=== PATIENT | male | born 1990 | race Caucasian/White ===

== ENCOUNTER 2018-04-04 13:45 | Inpatient (IN) | payer MEDICAID ==
[2018-04-04] MEDS ORDERED: CEFEPIME HCL 2 GM in NS 100 ML IV ONE (14:51)
[2018-04-04] MEDS ORDERED: NS 1,000 ML IV ONE ×2 (14:52)
[2018-04-04] MEDS ORDERED: VANCOMYCIN HCL/NORMAL SALINE 250 ML IV ONE (14:52)
--- NOTE | 2018-04-04 15:08 | EDPHY ---
H & P Time Seen by Provider: 04/04/18 14:42 HPI/ROS: CHIEF COMPLAINT: Right foot redness and pain HISTORY OF PRESENT ILLNESS: Patient wears sneakers usually and had a callus on his left foot that opened up 4 days ago. 2 days ago started becoming red and then yesterday and today draining and increasing swelling and became more painful. Presents with moderate pain in the right foot essentially around the great toe into the main part of the foot, does not radiate, worse with palpation or any pressure. Is associated with draining pus, no fever or chills. Symptoms moderate to severe. REVIEW OF SYSTEMS: Eye: no change in vision ENT: Congestion and a little bit of a cough over the past 2 days, stable Cardiac: no chest pain or syncope Pulmonary: Not short of breath Abdomen: no vomiting, diarrhea, abdominal pain Musculoskeletal: no back pain Skin: HPI Neuro: no headache Constitutional: no fever : no urinary symptoms A comprehensive 10 point review of systems is otherwise negative aside from elements mentioned in the history of present illness. PAST MEDICAL HISTORY: PTSD and anxiety Social history: Tobacco smoker no IV drugs General Appearance: Alert and conversant, cooperative. Eyes: No scleral icterus. ENT, Mouth: Normal mucous membranes. Respiratory: Normal respiratory effort, breath sounds equal, lungs are clear to auscultation. Cardiovascular: Regular rate and rhythm. Gastrointestinal: Abdomen is soft and non tender. Neurological: Alert, face symmetric, normal motor and sensory in extremities. Skin: Redness and swelling on the great toe extending proximally into the forefoot and laterally to the 2nd toe. No crepitus. There is an open wound on the lateral side of the great toe between the great toe and 2nd toe which is draining pus. There is an ecchymotic area just on the ball of the foot 1.5 cm diameter. Musculoskeletal: Swelling and tenderness in the right great toe extending into the midfoot. Psychiatric: Not agitated. Emergency Department course/MDM: 1504: discussed with Shae will consult for surgery. 1507: Discussed with Dr. Padgett. IV cefepime 2g to cover for Pseudomonas given his plantar wound and infection, vancomycin 1g for gram-positive. 1538: Does not have SIRS criteria in the ED, x-ray shows soft tissue swelling but no gas. Wound culture performed. Patient declined IV pain medication. Smoking Status: Current every day smoker Constitutional: Initial Vital Signs Temperature (C) 37.4 C 04/04/18 14:08 Heart Rate 102 H 04/04/18 14:08 Respiratory Rate 18 04/04/18 14:08 Blood Pressure 146/82 H 04/04/18 14:08 O2 Sat (%) 97 04/04/18 14:08 O2 Delivery Mode Room Air Allergies/Adverse Reactions: No Known Allergies Allergy (Verified 04/04/18 15:36) Home Medications: Medication Instructions Recorded QUEtiapine FUMARATE [Seroquel 100 100 mg PO DAILY 04/04/18 mg (*)] hydrOXYzine HCL [Vistaril 25MG] 25 mg PO TID 04/04/18 Medical Decision Making - Diagnostics Imaging Results: Imaging Impressions Foot X-Ray 04/04/18 14:52 Impression: [place] soft tissue swelling. No evidence for underlying osteomyelitis. Imaging: I viewed and interpreted images myself Differential Diagnosis: Differential considered including but not limited to cellulitis, fasciitis, deep space abscess, osteomyelitis. - Data Points Laboratory Results: Laboratory Results 04/04/18 14:58 04/04/18 14:58 04/04/18 04/04/18 04/04/18 14:58 14:58 14:58 WBC 11.00 10^3/uL H 10^3/uL (3.80-9.50) RBC 5.41 10^6/uL 10^6/uL (4.40-6.38) Hgb 15.3 g/dL g/dL (13.7-17.5) Hct 46.2 % % (40.0-51.0) MCV 85.4 fL fL (81.5-99.8) MCH 28.3 pg pg (27.9-34.1) MCHC 33.1 g/dL g/dL (32.4-36.7) RDW 13.1 % % (11.5-15.2) Plt Count 317 10^3/uL 10^3/uL (150-400) MPV 10.1 fL fL (8.7-11.7) Neut % (Auto) 75.7 % H % (39.3-74.2) Lymph % (Auto) 15.5 % % (15.0-45.0) [place] % (Auto) 5.5 % % (4.5-13.0) Eos % (Auto) 2.3 % % (0.6-7.6) Baso % (Auto) 0.5 % % (0.3-1.7) Nucleat RBC Rel Count 0.0 % % (0.0-0.2) Absolute Neuts (auto) 8.35 10^3/uL H 10^3/uL (1.70-6.50) Absolute Lymphs (auto) 1.70 10^3/uL 10^3/uL (1.00-3.00) Absolute Monos (auto) 0.60 10^3/uL 10^3/uL (0.30-0.80) Absolute Eos (auto) 0.25 10^3/uL 10^3/uL (0.03-0.40) Absolute Basos (auto) 0.05 10^3/uL 10^3/uL (0.02-0.10) Absolute Nucleated RBC 0.00 10^3/uL 10^3/uL (0-0.01) Immature Gran % 0.5 % % (0.0-1.1) Immature Gran # 0.05 10^3/uL 10^3/uL (0.00-0.10) PT 13.1 SEC SEC (12.0-15.0) INR 0.97 (0.83-1.16) APTT 29.0 SEC SEC (23.0-38.0) VBG Lactic Acid Sodium 143 mEq/L mEq/L (135-145) Potassium 4.0 mEq/L mEq/L (3.3-5.0) Chloride 100 mEq/L mEq/L (97-110) Carbon Dioxide 31 mEq/l mEq/l (22-31) Anion Gap 12 mEq/L mEq/L (6-14) BUN 14 mg/dL mg/dL (7-23) Creatinine 0.7 mg/dL mg/dL (0.7-1.3) Estimated GFR > 60 Glucose 78 mg/dL mg/dL (70-100) Calcium 10.1 mg/dL mg/dL (8.5-10.4) Total Bilirubin 1.3 mg/dL mg/dL (0.1-1.4) 04/04/18 14:58 WBC RBC Hgb Hct MCV MCH MCHC RDW Plt Count MPV Neut % (Auto) Lymph % (Auto) [place] % (Auto) Eos % (Auto) Baso % (Auto) Nucleat RBC Rel Count Absolute Neuts (auto) Absolute Lymphs (auto) Absolute Monos (auto) Absolute Eos (auto) Absolute Basos (auto) Absolute Nucleated RBC Immature Gran % Immature Gran # PT INR APTT VBG Lactic Acid 0.8 mmol/L mmol/L (0.7-2.1) Sodium Potassium Chloride Carbon Dioxide Anion Gap BUN Creatinine Estimated GFR Glucose Calcium Total Bilirubin Medications Given: Discontinued Medications Sodium Chloride (Ns) 1,000 mls @ 0 mls/hr IV EDNOW ONE; Wide Open PRN Reason: Protocol Stop: 04/04/18 14:53 Last Admin: 04/04/18 15:27 Dose: 1,000 mls Sodium Chloride (Ns) 1,000 mls @ 0 mls/hr IV EDNOW ONE; Wide Open PRN Reason: Protocol Stop: 04/04/18 14:53 Last Admin: 04/04/18 16:06 Dose: 1,000 mls Vancomycin/Sodium Chloride (Vancomycin 1 Gm (Premix)) 250 mls @ 250 mls/hr IV EDNOW ONE PRN Reason: Protocol Stop: 04/04/18 15:51 Last Admin: 04/04/18 15:28 Dose: 250 mls Departure - Departure Disposition: [facility] Clinical Impression: Right foot infection Condition: Good
[2018-04-04] MEDS ORDERED: HYDROmorphONE/DILAUDID 2 MG/ML INJ IVP PRN (15:09)
[2018-04-04] MEDS ORDERED: ONDANSETRON 4 MG/2 ML VIAL IVP PRN (15:09)
[2018-04-04] MEDS ORDERED: ONDANSETRON DISINTEGRATING 4 MG TAB PO PRN (15:09)
[2018-04-04] MEDS ORDERED: HYDROmorphONE/DILAUDID 2 MG TAB PO PRN (15:09)
[2018-04-04] MEDS ORDERED: ACETAMINOPHEN 325 MG TAB PO PRN (15:09)
[2018-04-04 15:15] LABS: PLATELET COUNT 317 10^3/uL (150-400)
[2018-04-04 15:40] LABS: INR 0.97 (0.83-1.16); PROTIME(PATIENT) 13.1 SEC (12.0-15.0)
--- NOTE | 2018-04-04 15:48 | PDGENHP ---
History and Physical - Chief Complaint Acute foot pain - History of Present Illness Primary care provider: None Primary mental health provider: [facility] HPI: 27-year-old male presenting with acute foot pain characterized as a sharp pain located in his right 1st digit with associated swelling, subjective fevers , pustulant drainage. Patient reports that the onset of the swelling was approximately 3 days ago and duration has been persistent and worsening thereafter. At 1st he was not sure if he had frostbite and he aggressively massaged the area, noting what appeared to be a blood blister on the plantar surface of the right foot located right at the base between the 1st and 2nd digit. He began developing pain which was exacerbated by ambulating in placing weight on the affected area, and the pain would be alleviated by staying off of his foot. The pain then evolved into discomfort with any palpation. On the day of presentation, the area that he believed to be a blood blister opened up and began draining pustule and bloody drainage. He has not been taking any medications for the pain and the patient has been living in his car recently. History Information - Allergies/Home Medication List Allergies/Adverse Reactions: No Known Allergies Allergy (Verified 04/04/18 15:36) Home Medications: QUEtiapine FUMARATE [Seroquel 100 mg (*)] 100 mg PO DAILY 04/04/18 [Last Taken 03/05/18] hydrOXYzine HCL [Vistaril 25MG] 25 mg PO TID 04/04/18 [Last Taken 03/05/18] I have personally reviewed and updated: family history, medical history, social history, surgical history - Past Medical History Additional medical history: Schizoaffective disorder, PTSD, seen at [facility] - Surgical History Reports: no pertinent surgical hx - Family History Additional family history: Several second-degree relatives with diabetes, patient is fairly vague about the details - Social History Smoking Status: Current every day smoker Alcohol Use: None Drug Use: Marijuana Additional social history: Independent in his ADLs comma the patient recently relocated to [place] from [place] approximately 1 month ago, he had been residing in the [place] [facility] and is currently living in his car Review of Systems Review of Systems: ROS: 10pt was reviewed & negative except for what was stated in HPI & below Constitutional: Reports: fever Muscolosketal: Reports: other (Pain in the right great toe with ambulation) Skin: Reports: other (Swelling, tenderness right great toe) Physical Exam Physical Exam: Temp Pulse Resp BP Pulse Ox 37.4 C 102 H 18 146/82 H 97 04/04/18 14:08 04/04/18 14:08 04/04/18 14:08 04/04/18 14:08 04/04/18 14:08 Constitutional: no apparent distress, appears nourished, not in pain, No uncomfortable Eyes: PERRL, anicteric sclera, EOMI Ears, Nose, Mouth, Throat: moist mucous membranes, hearing normal, ears appear normal, no oral mucosal ulcers Cardiovascular: tachycardia, edema (Right foot distal to the mid foot), No systolic murmur, No irregularly irregular Respiratory: no respiratory distress, no rales or rhonchi, clear to auscultation Gastrointestinal: normoactive bowel sounds, soft, non-tender abdomen, no palpable masses Skin: other (Blanchable erythema right great toe with tenderness, bloody, scabbed, necrotic tissue at the base of the right great toe, soft tissue edema which is tender) Musculoskeletal: other (Impaired plantar flexion right great toe, painful dorsiflexion right great toe, full range of motion right ankle without any pain) Neurologic: AAOx3, sensation intact bilaterally Psychiatric: not anxious, not encephalopathic, flat affect, No agitated Lymph, Heme, Immunologic: lymphangitic streaking (Dorsum of the right foot) Lab Data & Imaging Review 04/04/18 14:58 04/04/18 14:58 WBC 11.00 10^3/uL (3.80-9.50) H 04/04/18 14:58 RBC 5.41 10^6/uL (4.40-6.38) 04/04/18 14:58 Hgb 15.3 g/dL (13.7-17.5) 04/04/18 14:58 Hct 46.2 % (40.0-51.0) 04/04/18 14:58 MCV 85.4 fL (81.5-99.8) 04/04/18 14:58 MCH 28.3 pg (27.9-34.1) 04/04/18 14:58 MCHC 33.1 g/dL (32.4-36.7) 04/04/18 14:58 RDW 13.1 % (11.5-15.2) 04/04/18 14:58 Plt Count 317 10^3/uL (150-400) 04/04/18 14:58 MPV 10.1 fL (8.7-11.7) 04/04/18 14:58 Neut % (Auto) 75.7 % (39.3-74.2) H 04/04/18 14:58 Lymph % (Auto) 15.5 % (15.0-45.0) 04/04/18 14:58 [place] % (Auto) 5.5 % (4.5-13.0) 04/04/18 14:58 Eos % (Auto) 2.3 % (0.6-7.6) 04/04/18 14:58 Baso % (Auto) 0.5 % (0.3-1.7) 04/04/18 14:58 Nucleat RBC Rel Count 0.0 % (0.0-0.2) 04/04/18 14:58 Absolute Neuts (auto) 8.35 10^3/uL (1.70-6.50) H 04/04/18 14:58 Absolute Lymphs (auto) 1.70 10^3/uL (1.00-3.00) 04/04/18 14:58 Absolute Monos (auto) 0.60 10^3/uL (0.30-0.80) 04/04/18 14:58 Absolute Eos (auto) 0.25 10^3/uL (0.03-0.40) 04/04/18 14:58 Absolute Basos (auto) 0.05 10^3/uL (0.02-0.10) 04/04/18 14:58 Absolute Nucleated RBC 0.00 10^3/uL (0-0.01) 04/04/18 14:58 Immature Gran % 0.5 % (0.0-1.1) 04/04/18 14:58 Immature Gran # 0.05 10^3/uL (0.00-0.10) 04/04/18 14:58 PT 13.1 SEC (12.0-15.0) 04/04/18 14:58 INR 0.97 (0.83-1.16) 04/04/18 14:58 APTT 29.0 SEC (23.0-38.0) 04/04/18 14:58 VBG Lactic Acid 0.8 mmol/L (0.7-2.1) 04/04/18 14:58 Sodium 143 mEq/L (135-145) 04/04/18 14:58 Potassium 4.0 mEq/L (3.3-5.0) 04/04/18 14:58 Chloride 100 mEq/L (97-110) 04/04/18 14:58 Carbon Dioxide 31 mEq/l (22-31) 04/04/18 14:58 Anion Gap 12 mEq/L (6-14) 04/04/18 14:58 BUN 14 mg/dL (7-23) 04/04/18 14:58 Creatinine 0.7 mg/dL (0.7-1.3) 04/04/18 14:58 Estimated GFR > 60 04/04/18 14:58 Glucose 78 mg/dL (70-100) 04/04/18 14:58 Calcium 10.1 mg/dL (8.5-10.4) 04/04/18 14:58 Total Bilirubin 1.3 mg/dL (0.1-1.4) 04/04/18 14:58 Visualized and Interpreted imaging results: Yes Interpretation: X-ray of the right foot demonstrates soft tissue swelling Assessment & Plan Assessment: 27-year-old male presents with severe soft tissue infection of the right foot Plan: 1. Severe soft tissue infection. Acute, new problem this provider, further workup indicated. Likely combination of deep tissue cellulitis as well as abscess with apparent drainage on the day of presentation, unclear precipitant -discussed with Dr. Kaufman and Dr. Graves, our consensus is that this does not appear to demonstrate tenosynovitis but there is high-level suspicion that deep soft tissues are involved and the patient requires emergent exploration and drainage by General surgery -patient to go to OR this afternoon, keep NPO -blood culture sent, wound cultures will be obtained in OR -received IV fluids in the emergency department, continue -initiated on IV vancomycin and IV cefepime, continue until culture result available -get Infectious Disease consultation in a.m. -check hemoglobin A1c -get wound care consultation for ongoing wound management as it is likely that this will require complex wound management as an outpatient following this hospitalization 2. Schizoaffective disorder. Pharmacy to reconcile medications, will notify [facility] of the patient's presentation, patient is currently cooperative 3. Tobacco use disorder. Nicotine patch available Diet. NPO with IV fluids Prophylaxis. High risk patient, hold on pharmacologic until after surgery, SCDs in the interim Code. Full Disposition. Anticipated discharge uncertain this time, anticipated length stay is greater than 48 hr for reasonable medical necessity including severe soft tissue infection requiring IV antibiotics, emergent OR exploration, will require close reassessment and Infectious Disease consultation. I have discussed patient's presentation with Dr. John Meyer, he and I both agree the patient meets all inpatient criteria as outlined above and the [facility].
[2018-04-04] MEDS ORDERED: KETOROLAC 15 MG/1 ML SDV IVP PRN (17:24)
--- NOTE | 2018-04-04 18:05 | GCON ---
DATE OF CONSULTATION: 04/04/2018 This is a 27-year-old gentleman who is currently homeless, who has had 3 days of worsening foot pain and swelling. This morning he had drainage from his foot. He thought it was just frostbite and that he could work it out with massage. He has had subjective fevers. No chills. He has not had anythi ng like this in the past. The patient presented to the emergency room for evaluation. He is admitte d to Medicine at this point. Foot x-ray has been performed, which does not show any osteomyelitis. White blood cell count is 11.0 with a left shift. PAST MEDICAL HISTORY: Significant for schizoaffective disorder. MEDICATIONS: At home are Seroquel and Vistaril. ALLERGIES: He has no known drug allergies. FAMILY HISTORY: Noncontributory. Family is significant for diabetes. SOCIAL HISTORY: The patient is a current smoker. He does use marijuana. He denies alcohol use. PREVIOUS SURGERY: Only previous surgery was wisdom teeth extraction. REVIEW OF SYSTEMS: Significant for fever, pain in his great toe with ambulation and swelling. All o thers are reviewed and are negative. EXAM: VITALS: He has a temperature of 37.4, heart rate of 102, blood pressure of 146/82, saturating 97% on room air, with a respiratory rate of 18. GENERAL: He is not in any distress. He appears we ll-nourished and comfortable. HEENT: His sclerae are anicteric. Extraocular motions intact. His mu cous members are moist. He has fairly good dentition. HEART: Regular rate and rhythm. LUNGS: Clear to auscultation bilaterally. ABDOMEN: Soft, nontender, nondistended. He has no adenopathy in either groin. EXTREMITIES: Right lower extremity has a swollen forefoot and right great toe with p urulent drainage from the inside aspect of the great toe with tenderness to dorsiflexion. He does no t have tendon tenderness with palpation of the tendon sheath. Joint may be involved based on evaluat ion with approximately the infection going to the mid forefoot. He does have lymphangitic streaking from the foot up to the ankle. He has intact dorsalis pedis and posterior tibial pulses. Left foot has a callus on the base, but otherwise no signs of infection. I reviewed his x-rays. LABORATORY STUDIES: He has a white blood cell count of 11, hemoglobin of 15, hematocrit of 46, plate let count of 317. Sodium 143, potassium 4.0, chloride 100, bicarb 31, BUN is 14, and creatinine is 0 .7, with a blood sugar of 76. X-ray shows soft tissue swelling but no osteomyelitis. IMPRESSION: Soft tissue infection of his foot. Will need further treatment with an incision and anita inage with washout. He has been booked for the OR, but the patient is ambivalent at this point. The risks, benefits, and alternatives to surgery have been clearly outlined to the patient and recommend aggressive treatment at this point. We will continue vancomycin and cefepime for his current infect ion. Possible Infectious Disease consultation in the morning. He does have schizoaffective disorder , and he will need to have his medications for that. Continue to recommend smoking cessation and ant icipate greater than 48 hours in the hospital at this time. The patient has been apprised of his con dition and the need for urgent surgery. He will inform us of his decision to proceed with surgery. /[id number]/MODL
[2018-04-04] MEDS: IBUPROFEN 600 MG TAB PO PRN (18:38)
[2018-04-04] MEDS: NICOTINE POLACRILEX 2 MG GUM B PRN (18:38)
[2018-04-04] MEDS: hydrOXYzine HCL 25 MG TAB PO SCH (22:04)
[2018-04-04] MEDS: PIPERACILLIN/TAZO 4.5 GM/DEX 100 ML IV SCH (22:04)
[2018-04-05] MEDS: NS 1,000 ML IV SCH ×2 (01:07→09:25)
[2018-04-05] MEDS: IBUPROFEN 600 MG TAB PO PRN ×3 (01:09→19:13)
[2018-04-05] MEDS ORDERED: VANCOMYCIN 1.5 GM in D5W 250 ML IV SCH (04:00)
[2018-04-05] MEDS: PIPERACILLIN/TAZO 4.5 GM/DEX 100 ML IV SCH ×2 (04:56→09:17)
[2018-04-05 06:11] LABS: PLATELET COUNT 242 10^3/uL (150-400)
--- NOTE | 2018-04-05 08:20 | PDMN ---
Medical Necessity Medical necessity: Pt meets IP criteria per & ERIKA PG-WS (Wound & Skin Management); est los >2 mn for eval/tx of severe soft tissue infection; admit for further workup/monitoring, Surgery consult w/emergent surgical intervention , IVFs, IV abx, ID/Wound Care consults & therapies; per H&P & order 04/04/18
--- NOTE | 2018-04-05 08:47 | HOSPPROG ---
Hospitalist Progress Note Assessment/Plan: Soft tissue infection right foot - suspect abscess, no e/o sepsis. BCx's pending, wound Cx with MSSA -MRI foot with and without contrast- no e/o osteo -de-escalate atbx to cefazolin -discussed with surg, to OR this afternoon for I&D Schizoaffective disorder - stable, cont home seroquel Full code DVT PPLX - low risk, defer pharm with OR plans today, SCD's ordered Dispo - cont inpt Subjective: Pt feels ok, less pain in foot, still some drainage overnight. No fevers/chills. NPO this am. Objective: Vital Signs Temp Pulse Resp BP Pulse Ox 36.4 C 72 16 115/84 H 95 04/05/18 08:00 04/05/18 08:00 04/05/18 08:00 04/05/18 08:00 04/05/18 08:00 Laboratory Results 04/05/18 04:36 04/05/18 04:36 04/04/18 04/05/18 04/06/18 05:59 05:59 05:59 Intake Total 1074 Output Total 350 500 Balance 724 -500 PT 13.1 SEC (12.0-15.0) 04/04/18 14:58 INR 0.97 (0.83-1.16) 04/04/18 14:58 - Physical Exam Constitutional: no apparent distress Eyes: PERRL Ears, Nose, Mouth, Throat: moist mucous membranes Cardiovascular: regular rate and rhythym Respiratory: no respiratory distress, clear to auscultation Gastrointestinal: normoactive bowel sounds, soft, non-tender abdomen Skin: warm Musculoskeletal: full muscle strength, other (Right foot with erythema and probable underlying abscess surrounding 1st MTP with bloody drainage) Neurologic: AAOx3 Psychiatric: interacting appropriately ICD10 Worksheet Patient Problems: Problems Problem Status Onset Right foot infection Acute
[2018-04-05] MEDS: NICOTINE POLACRILEX 2 MG GUM B PRN ×4 (09:17→19:15)
[2018-04-05] MEDS: QUEtiapine FUMARATE 100 MG TAB PO SCH ×3 (09:17→21:20)
[2018-04-05] MEDS: hydrOXYzine HCL 25 MG TAB PO SCH ×3 (09:17→21:20)
[2018-04-05] MEDS ORDERED: GADOBUTROL 10 ML VIAL IVP ONE (11:43)
--- NOTE | 2018-04-05 14:20 | SOAPPROG ---
SOAP Progress Note Assessment/Plan: Assessment: 27 yo with abscess right great toe plantar surface. Imaging without osteomylitis. Will proceed to OR for incision and drainage. Risks and benefits discussed S: Feeling about the same. Using Ibuprofen O: Toe and foot on right are edematous and erythematous CTAB RRR Plan: 04/05/18 14:19 Objective: Vital Signs Temp Pulse Resp BP Pulse Ox 36.6 C 70 12 129/84 H 98 04/05/18 12:00 04/05/18 12:00 04/05/18 12:00 04/05/18 12:00 04/05/18 12:00 Laboratory Results 04/05/18 04:36 04/05/18 04:36 04/04/18 04/05/18 04/06/18 05:59 05:59 05:59 Intake Total 1074 Output Total 350 800 Balance 724 -800 PT 13.1 SEC (12.0-15.0) 04/04/18 14:58 INR 0.97 (0.83-1.16) 04/04/18 14:58 ICD10 Worksheet Patient Problems: Problems Problem Status Onset Right foot infection Acute
[2018-04-05] MEDS ORDERED: ceFAZolin 2 GM/DEXTROSE 100 ML IV SCH (15:00)
[2018-04-05] MEDS ORDERED: BUPIVACAINE 0.5% 30 ML SDV ONE (15:29)
[2018-04-05] MEDS ORDERED: MIDAZOLAM 2 MG/2 ML VIAL ONE (15:42)
[2018-04-05] MEDS ORDERED: fentaNYL 100 MCG/2 ML INJ ONE (15:45)
[2018-04-05] MEDS ORDERED: PROPOFOL/EMULSION 500 MG/50 ML BOTTLE IV ONE (15:46)
--- NOTE | 2018-04-05 16:00 | ASMTLACE ---
NEFTALY Acuity / Level of Answers: Yes Care: Did the patient have an inpatient admission? # of Emergency department Answers: 1-2 visits in the last 6 months Social determinants Answers: Homelessness (street, senior living) History of trauma (PTSD, child abuse, domestic violence, etc.) Mental health diagnosis (anxiety, depression, pers onality disorders, etc.) Score: 13 Date Signed: 04/05/2018 04:00 PM Electronically Signed By:aRe Tejada RN
--- NOTE | 2018-04-05 16:05 | ASMTCMCOM ---
CM Note CM Note Notes: Pt recently moved from [place], he has been staying at the [facility] and lives out of his car. He does have schizoaffective disorder and is in the [facility] system. He presents to the ER with an infected toe, he went for surgery today, dc needs uncertain, CM w/f. DC Plan: TBD Date Signed: 04/05/2018 04:04 PM Electronically Signed By:Rae Tejada RN
--- NOTE | 2018-04-05 16:13 | PDANEPAE ---
ANE Past Medical History - Pulmonary History Hx Oxygen in Use at Home: No Hx Sleep Apnea: No Sleep Apnea Screening Result - Last Documented: Negative - Endocrine History Hx Diabetes: No ANE Review of Systems Review of Systems: ANE Patient History - Allergies Allergies/Adverse Reactions: Sulfa (Sulfonamide Antibiotics) Allergy (Intermediate, Verified 04/05/18 14:56) Rash - Home Medications Home Medications: QUEtiapine FUMARATE [Seroquel 100 mg (*)] 100 mg PO DAILY 04/04/18 [Last Taken 03/05/18] hydrOXYzine HCL [Vistaril 25MG] 25 mg PO TID 04/04/18 [Last Taken 03/05/18] - NPO status NPO Since - Liquids (Date): 04/05/18 NPO Since - Liquids (Time): 00:00 NPO Since - Solids (Date): 04/05/18 NPO Since - Solids (Time): 00:00 - Smoking Hx Smoking Status: Current every day smoker - Alcohol Use Alcohol Use: None ANE Labs/Vital Signs - Labs Result Diagrams: 04/05/18 04:36 04/05/18 04:36 - Vital Signs Blood Pressure: 129/84 Heart Rate: 70 Respiratory Rate: 12 O2 Sat (%): 98 Height: 187.96 cm Weight: 90.718 kg ANE Physical Exam - Airway Neck exam: FROM Mallampati Score: Class 1 Mouth exam: normal dental/mouth exam - Pulmonary Pulmonary: no respiratory distress, no rales or rhonchi - Cardiovascular Cardiovascular: regular rate and rhythym, no murmur, rub, or gallop - ASA Status ASA Status: II, E ANE Anesthesia Plan Anesthesia Plan: GA w LMA (ankle block for POPC)
[2018-04-05] MEDS ORDERED: KETOROLAC 30 MG/1 ML SDV ONE (16:21)
[2018-04-05] MEDS ORDERED: ONDANSETRON 4 MG/2 ML VIAL ONE (16:21)
[2018-04-05] MEDS ORDERED: ROPIVACAINE HCL 150 MG/30 ML INJ ONE (16:21)
[2018-04-05] MEDS: NICOTINE 21 MG/24 HR PATCH TD SCH (16:22)
[2018-04-05] MEDS ORDERED: ONDANSETRON 4 MG/2 ML VIAL IVP PRN (16:23)
[2018-04-05] MEDS ORDERED: LR 500 ML IV PRN (16:23)
[2018-04-05] MEDS ORDERED: NALOXONE HCL 0.4 MG/ML INJ IVP PRN (16:23)
[2018-04-05] MEDS ORDERED: fentaNYL 100 MCG/2 ML INJ IVP PRN (16:23)
--- NOTE | 2018-04-05 16:37 | POSTOPPROG ---
Post Op Note Date of Operation: 04/05/18 Surgeon: Erum Lamb Anesthesiologist: murali Anesthesia: GET(General Endotracheal) Pre-op Diagnosis: great toe abscess Post-op Diagnosis: same Indication: 27 yo with abscess great toe. Procedure: Incision and drainage great toe abscess Findings: 1x4x1.5cm. purulent fluid. No bone exposed Inf/Abcess present in the surg proc area at time of surgery?: Yes Depth: Deep Incisional (Fascial) EBL: Minimal Specimen(s): none
--- NOTE | 2018-04-05 16:37 | POSTANESTH ---
Post Anesthetic Evaluation Cardiovascular Status: Normal, Stable, Similar to Pre-Op Cond Respiratory Status: Normal, Stable, Similar to Pre-op Cond. Level of Consciousness/Mental Status: Moderately Sleepy Pain Control: Adequate, Prn Tx Ordered Nausea/Vomiting Control: Adequate, Prn Tx Ordered Complications Possibly Related to Anesthesia: None Noted
--- NOTE | 2018-04-05 16:59 | GOP ---
DATE OF OPERATION: 04/05/2018 SURGEON: Erum Lamb MD ANESTHESIA: General and ankle block. ANESTHESIOLOGIST: Katlyn Nelson MD. PREOPERATIVE DIAGNOSIS: Right great toe abscess. POSTOPERATIVE DIAGNOSIS: Right great toe abscess. PROCEDURE PERFORMED: Incision and drainage right great toe abscess. FINDINGS: Wound measured 1 x 4 x 1.5 cm abscess to the level of tendon. No bone exposed. SPECIMENS: None. ESTIMATED BLOOD LOSS: 5 cc. INDICATIONS: The patient is a 27-year-old who developed a blister on the bottom of his foot. He is living in his car and developed increased erythema and pain. MRI was performed which showed abscess but no osteomyelitis. He declined going to the operating room yesterday and consented today. DESCRIPTION OF PROCEDURE: Patient was brought into the operating room, placed supine on the table. General anesthesia was administered. An ankle block was performed. His foot was prepped and draped in the usual sterile fashion. I made an incision on the medial aspect of the great toe and extended this posteriorly and evacuated all of the necrotic tissue. The wound measures 1 x 4 x 1.5 cm. The w ound was irrigated. Hemostasis achieved. The wound was packed with Hydrofera Blue, followed by gauz e, Kerlix, and Coban. He was awakened in the operating room, extubated, transferred to PACU in stabl e condition. He tolerated the procedure well. /[id number]/MODL
[2018-04-05] MEDS: ceFAZolin 2 GM/DEXTROSE 100 ML IV SCH (18:24)
[2018-04-06] MEDS: ceFAZolin 2 GM/DEXTROSE 100 ML IV SCH ×3 (02:17→17:12)
[2018-04-06] MEDS: NS 1,000 ML IV SCH (03:22)
[2018-04-06] MEDS: IBUPROFEN 600 MG TAB PO PRN ×2 (03:22→09:42)
[2018-04-06] MEDS: hydrOXYzine HCL 25 MG TAB PO SCH ×3 (09:43→21:46)
[2018-04-06] MEDS: NICOTINE POLACRILEX 2 MG GUM B PRN ×2 (09:43→12:10)
[2018-04-06] MEDS: NICOTINE 21 MG/24 HR PATCH TD SCH (10:10)
--- NOTE | 2018-04-06 12:35 | HOSPPROG ---
Hospitalist Progress Note Assessment/Plan: Maninder is a 27 y/o male who presented to the ER w foot pain on his right first digit w associated swelling and fevers. This started 3 days prior to his admission. Today is my first encounter w the patient, chart reviewed. Soft tissue infection right foot - suspect abscess, no e/o sepsis. -s/p I & D with Dr Lamb, wound Cx with MSSA -blood cx shows no growth -MRI foot with and without contrast- no e/o osteo -cefazolin -can be dc on cephalexin Schizoaffective disorder - stable, cont home seroquel Homelessness -has been living in his car Plan: spoke w CM to f/u with him. Prem says he is having difficulty w walking, will see how he is doing overnight, ask PT and OT to see. Subjective: Prem is worried about walking due to pain. Objective: Vital Signs Temp Pulse Resp BP Pulse Ox 36.9 C 81 16 118/82 H 96 04/06/18 11:49 04/06/18 11:49 04/06/18 11:49 04/06/18 11:49 04/06/18 11:49 Laboratory Results 04/05/18 04:36 04/05/18 04:36 04/05/18 04/06/18 04/07/18 05:59 05:59 05:59 Intake Total 1074 1700 Output Total 350 2610 900 Balance 724 -910 -900 PT 13.1 SEC (12.0-15.0) 04/04/18 14:58 INR 0.97 (0.83-1.16) 04/04/18 14:58 - Physical Exam Constitutional: uncomfortable Eyes: PERRL Ears, Nose, Mouth, Throat: hearing normal Cardiovascular: regular rate and rhythym Respiratory: no respiratory distress Skin: warm, other (right foot w dressing in place) Neurologic: AAOx3 Psychiatric: flat affect ICD10 Worksheet Patient Problems: Problems Problem Status Onset Right foot infection Acute
--- NOTE | 2018-04-06 13:42 | SOAPPROG ---
SOAP Progress Note Assessment/Plan: Assessment/Plan: 27yo M POD#1 s/p I&D R great toe abscess. MRI no osteomyelitis. Homelessness- living in car prior to admission Pain controlled c PO meds WBCs normal. IV Cefazolin. Culture MSSA Ppx - SCDs, lovenox. Psych - underlying schizoaffective d/o. continue home meds Dispo - PT/OT. Wear post-op shoe when ambulating, limit ambulation. Appreciate hospitalists. S - occasional sharp pains at surgery site, but mostly no pain. only walking to and from bathroom O - Laying in bed, comfortable, NAD No increased WOB No peripheral edema R great toe edema/erythema appears improved. HFB in place. Outer dressing changed, some fresh blood on bandage. Small oozer from skin edge - pt refused pressure and silver nitrate - applied pressure dressing Objective: Vital Signs Temp Pulse Resp BP Pulse Ox 36.9 C 81 16 118/82 H 96 04/06/18 11:49 04/06/18 11:49 04/06/18 11:49 04/06/18 11:49 04/06/18 11:49 Laboratory Results 04/05/18 04:36 04/05/18 04:36 04/05/18 04/06/18 04/07/18 05:59 05:59 05:59 Intake Total 1074 1700 Output Total 350 2610 900 Balance 724 -910 -900 PT 13.1 SEC (12.0-15.0) 04/04/18 14:58 INR 0.97 (0.83-1.16) 04/04/18 14:58 ICD10 Worksheet Patient Problems: Problems Problem Status Onset Right foot infection Acute
[2018-04-06] MEDS: QUEtiapine FUMARATE 100 MG TAB PO SCH (21:46)
[2018-04-07] MEDS: ceFAZolin 2 GM/DEXTROSE 100 ML IV SCH ×3 (02:40→17:05)
--- NOTE | 2018-04-07 08:30 | HOSPPROG ---
Hospitalist Progress Note Assessment/Plan: Maninder is a 27 y/o male who presented to the ER w foot pain on his right first digit w associated swelling and fevers. This started 3 days prior to his admission. Soft tissue infection right foot - suspect abscess, no e/o sepsis. -s/p I & D with Dr Lamb, wound Cx with MSSA -blood cx shows no growth -MRI foot with and without contrast- no e/o osteo -cefazolin -can be dc on cephalexin or Augmentin Schizoaffective disorder - stable, cont home Seroquel [facility] Homelessness -has been living in his car Plan: he will another day of iv antibiotics and then home tomorrow. He will more compliant w antibiotics bid so will dc on Augmentin for 10 days. He will need f/u at the wound clinic every 3 days, will f/u with Dr Lamb. Subjective: Prem is c/o pain with dressing change. Objective: Vital Signs Temp Pulse Resp BP Pulse Ox 36.4 C 62 16 128/68 H 95 04/07/18 04:00 04/07/18 04:00 04/07/18 04:00 04/07/18 04:00 04/07/18 04:00 Laboratory Results 04/05/18 04:36 04/05/18 04:36 04/06/18 04/07/18 04/08/18 05:59 05:59 05:59 Intake Total 1700 1050 Output Total 2610 2925 Balance -910 -1875 PT 13.1 SEC (12.0-15.0) 04/04/18 14:58 INR 0.97 (0.83-1.16) 04/04/18 14:58 - Physical Exam Constitutional: uncomfortable, No not in pain Eyes: PERRL Ears, Nose, Mouth, Throat: hearing normal Respiratory: no respiratory distress Skin: warm, other (r foot with dressing in place, redness noted at the base of the toes) Musculoskeletal: full muscle strength Neurologic: AAOx3 Psychiatric: flat affect ICD10 Worksheet Patient Problems: Problems Problem Status Onset Right foot infection Acute
[2018-04-07] MEDS: IBUPROFEN 600 MG TAB PO PRN (08:54)
[2018-04-07] MEDS: NICOTINE POLACRILEX 2 MG GUM B PRN (08:55)
[2018-04-07] MEDS: hydrOXYzine HCL 25 MG TAB PO SCH ×3 (08:55→22:23)
[2018-04-07] MEDS: NICOTINE 21 MG/24 HR PATCH TD SCH (09:02)
--- NOTE | 2018-04-07 09:16 | SOAPPROG ---
SOAP Progress Note Assessment/Plan: Assessment/Plan: 27yo M POD#2 s/p I&D R great toe abscess. MRI no osteomyelitis. Homelessness- living in car prior to admission Pain controlled c PO meds WBCs normal. IV Cefazolin. Culture MSSA. Will transition to 2 week course of keflex tomorrow in prep for d/c Ppx - SCDs, lovenox. Psych - underlying schizoaffective d/o. continue home meds Dispo - PT/OT. Wear post-op shoe when ambulating, limit ambulation. Appreciate hospitalists. Discharge planning - fpc? Seen with Dr. Lamb. S - working with PT. less swelling and pain compared to before surgery. pain with dressing change O - Laying in bed, comfortable, NAD No increased WOB No peripheral edema R great toe edema/erythema improved. HFB changed. Pain with packing removal. No active bleeding. Outer dressing replaced. Objective: Vital Signs Temp Pulse Resp BP Pulse Ox 36.5 C 63 16 124/75 H 96 04/07/18 08:35 04/07/18 08:35 04/07/18 08:35 04/07/18 08:35 04/07/18 08:35 Laboratory Results 04/05/18 04:36 04/05/18 04:36 04/06/18 04/07/18 04/08/18 05:59 05:59 05:59 Intake Total 1700 1050 Output Total 7452 0734 198 Balance -910 -6625 -977 PT 13.1 SEC (12.0-15.0) 04/04/18 14:58 INR 0.97 (0.83-1.16) 04/04/18 14:58 ICD10 Worksheet Patient Problems: Problems Problem Status Onset Right foot infection Acute
[2018-04-07] MEDS: QUEtiapine FUMARATE 100 MG TAB PO SCH (22:23)
[2018-04-08] MEDS: ceFAZolin 2 GM/DEXTROSE 100 ML IV SCH ×2 (02:55→10:20)
[2018-04-08 07:53] VITALS: BP 131/70
[2018-04-08] MEDS: NICOTINE 21 MG/24 HR PATCH TD SCH (10:19)
[2018-04-08] MEDS: NICOTINE POLACRILEX 2 MG GUM B PRN (10:20)
[2018-04-08] MEDS: hydrOXYzine HCL 25 MG TAB PO SCH (10:20)
--- NOTE | 2018-04-08 11:08 | HOSPPROG ---
Hospitalist Progress Note Assessment/Plan: Maninder is a 27 y/o male who presented to the ER w foot pain on his right first digit w associated swelling and fevers. This started 3 days prior to his admission. Soft tissue infection right foot - suspect abscess, no e/o sepsis. -s/p I & D with Dr Lamb, wound Cx with MSSA -blood cx shows no growth -MRI foot with and without contrast- no e/o osteo -cefazolin -can be dc on Augmentin Schizoaffective disorder - stable, cont home Seroquel -[facility] Homelessness -has been living in his car Plan: F/U w Dr Lamb and wound clinic Subjective: Prem has no complaints. Objective: Vital Signs Temp Pulse Resp BP Pulse Ox 36.6 C 62 16 131/70 H 95 04/08/18 07:52 04/08/18 07:52 04/08/18 07:52 04/08/18 07:52 04/08/18 07:52 Laboratory Results 04/05/18 04:36 04/05/18 04:36 04/07/18 04/08/18 04/09/18 05:59 05:59 05:59 Intake Total 1050 2950 Output Total 2925 1800 Balance -1875 1150 PT 13.1 SEC (12.0-15.0) 04/04/18 14:58 INR 0.97 (0.83-1.16) 04/04/18 14:58 - Physical Exam Constitutional: no apparent distress, appears nourished, not in pain Eyes: PERRL Ears, Nose, Mouth, Throat: hearing normal Respiratory: no respiratory distress Skin: other (right foot in dressing, base of large right toe area reddened) Neurologic: AAOx3 Psychiatric: agitated ICD10 Worksheet Patient Problems: Problems Problem Status Onset Right foot infection Acute
--- NOTE | 2018-04-08 11:46 | GDS ---
DISCHARGE DIAGNOSES: 1. Soft tissue infection of his right foot with abscess. 2. Schizoaffective disorder. 3. Homelessness. CONSULTATIONS: 1. Dr. Boo Kaufman. 2. Dr. Audrey Lamb. HISTORY OF PRESENT ILLNESS: Briefly, the patient is a 27-year-old male with a history of schizoaffective disorder who is homeless. He had 3 days of worsening foot pain and swelling and had drainage from his foot. He said he had subjective fevers. He had a foot x-ray, which did not show any osteomyelitis. Subsequently, he had an MRI performed that did not show any osteomyelitis. He was seen and evaluated by Dr. Lamb, and on 04/05, he had an I and D of a right great toe abscess. He improved significantly. His wound was packed with Hydrofera Blue. He will be discharged today with [facility] and will follow up with Dr. Lamb next week. HOSPITAL COURSE: 1. Soft tissue infection of his right foot with abscess. He is status post I and D with Dr. Lamb. His wound culture grew out MSSA. He was treated with cefazolin. He was discharged on Augmentin. 2. Schizoaffective disorder, on Seroquel. 3. Homelessness. He has been living in his car. DISCHARGE CONDITION: Stable. Blood pressure is 131/70, heart rate is 62, respiratory rate is 16, O2 saturation on room air 95%, temperature 36.6 Celsius. DISCHARGE MEDICATIONS: Please see the EMR. DISCHARGE INSTRUCTIONS: 1. To come get his wound evaluated on Friday at [facility] at 1 p.m. 2. Follow up with Dr. Lamb next week. 3. If he develops fever, chills, worsening redness to his foot to return to the ER. /[id number]/MODL MTDD
--- NOTE | 2018-04-08 16:25 | ASMTCMCOM ---
CM Note LOUISE Note Notes: Met with pt to discuss dc poc. CM spoke with MD, pt will need dressing changes 2/week. CM made pt appt [facility] for FridayApril 10 at 1pm. Pt understands and put appt in iphone. CM asked if he would like a bed at the fdc to be reserved for him, to which he replied "This [facility] are a bunch of fascists and I would rather sleep in my car and risk freezing than stay there, I have reported them." CM discussed pt's discharge with Malathi from [facility] who will go and meet with pt to offer resources. DC Plan: Independent Date Signed: 04/08/2018 11:26 AM Electronically Signed By:Rae Tejada RN
== END 2018-04-08 12:14 | disposition home or self-care (01) | DRG 364 ==
LOC: F3E 16:23
PROVIDERS: ADMIT Internal Medicine; ATTEND Internal Medicine
PROC: 0J9Q0ZZ Drainage of Right Foot Subcutaneous Tissue and Fascia, Open Approach (ICD-10-PCS; principal; 2018-04-05 16:00)
DX: L02.611 Cutaneous abscess of right foot (principal); F25.9 Schizoaffective disorder, unspecified; B95.61 Methicillin susceptible Staphylococcus aureus infection as the cause of diseases classified elsewhere; E86.9 Volume depletion, unspecified; Z59.0 Homelessness; Z72.0 Tobacco use
CPT/HCPCS: 97116-GP; 97161-GP; 97165-GO; A9585; J0690; J0692; J1885; J2250; J2405; J2543; J2704; J2795; J3010; J3370